=== PATIENT | female | born 1995 | race Caucasian/White ===

== ENCOUNTER 2022-08-20 11:12 | Emergency (ER) | payer BC, SELFPAY ==
--- NOTE | ~2022-08-20 | XR_ITS ---
EXAMINATION: XR FOREARM, RIGHT XR HAND, RIGHT CLINICAL INFORMATION: Crush injury to the right forearm.
--- NOTE | ~2022-08-20 | XR_ITS ---
EXAMINATION: XR FOREARM, RIGHT XR HAND, RIGHT CLINICAL INFORMATION: Crush injury to the right forearm. COMPARISON: None TECHNIQUE: AP and lateral views of the right forearm were obtained. 4 views of the right hand including scaphoid view. FINDINGS: Right forearm: Soft tissue swelling and radiolucencies are noted over the dorsal distal aspect of the right forearm. The underlying bony alignments are intact. The cortices are intact. Right hand: The bony alignments are intact. The cortices are intact. Soft tissue swelling is present overlying the dorsal aspect of the right wrist and the adjacent part of the forearm. XR/XR forearm RT 2V IMPRESSION: 1. Soft tissue swelling overlying the dorsal aspect of the right distal forearm extending over the wrist. 2. The underlying bones are intact.
[2022-08-20 11:15] VITALS: BP 159/118; PULSE 100; RESP 18; TEMP 37.1; O2SAT 98; BMI 30.4
--- NOTE | 2022-08-20 11:47 | ED.EXTPRO ---
HPI - Extremity Problem General Chief complaint: Extremity Injury, Upper Stated complaint: R ARM INJ AT WORK Time Seen by Provider: 08/20/22 11:22 Source: patient Mode of arrival: ambulatory Limitations: no limitations History of Present Illness HPI Narrative: 27-year-old female no significant medical history presents to the emergency department with complaints of pain to right forearm / wrist status post crush injury Just prior to arrival. 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 She tells me she immediately started experiencing pain and area became very swollen.. Tells me she experience some numbness to her fingers initially however has now improved. Denies any other medical complaints at this time. Related Data Home Medications Medication Instructions Recorded Confirmed norgestimate 0.18 mg/0.215 mg/0.25 1 tab PO DAILY 08/25/20 02/04/22 mg-ethinyl estradiol 25 mcg tablet ([id number]) Previous Rx's Medication Instructions Recorded clotrimazole 1 % topical cream 1 appl topical BID 4 weeks #45 02/04/22 grams miconazole nitrate 2 % topical 1 appl topical BID #71 grams 02/04/22 powder (Zeasorb AF) omeprazole 20 mg capsule,delayed 20 mg PO DAILY #90 caps 03/07/22 release ketorolac 10 mg tablet 10 mg PO TID PRN pain 5 days #15 08/20/22 tabs Allergies Allergy/AdvReac Type Severity Reaction Status Date / Time No Known Allergies Allergy Verified 02/04/22 16:32 Review of Systems Review of Systems: Constitutional : No Weight loss, No Fever, No Chills, No Fatigue, No Malaise ENT/Mouth : No sore throat, No Rhinorrhea Eyes: No Eye Pain, No Swelling, No Redness Cardiovascular : No Chest Pain, No SOB, No Dyspnea on Exertion, No Orthopnea, No Edema, No Palpitations Respiratory : No Cough, No Sputum, No Wheezing Gastrointestinal : No Nausea, No Vomiting, No Diarrhea, No Constipation, No abdominal Pain, No Hematochezia, No Melena Genitourinary : No Dysuria, No Urinary Frequency, No Hematuria, Musculoskeletal : + joint pain, No Myalgias, + Joint Swelling Skin : No Skin Lesions, No rash Neuro : No Weakness, No Numbness, No Dizziness, No Headache Psych : No Anxiety/Panic, No Depression All other systems reviewed and are negative Yes all other systems are reviewed and are negative [facility] Past Medical History Attestation statement: The following information was validated with the patient. Source: old records reviewed and nursing notes reviewed Medical History GERD (gastroesophageal reflux disease) Overweight (BMI 25.0-29.9) Surgical History No pertinent past surgical history Family History Family History Father In good health Mother Hypertension Anxiety Sister In good health Maternal Aunt Substance abuse Maternal Uncle Substance abuse Paternal Uncle Substance abuse Maternal Grandmother Renal cancer Social History Social History Housing: Apartment Alcohol intake: current Patient Tobacco Use Status: Never used Tobacco e-Cigarette/Vaping Use: Never Used Second Hand Smoke Exposure: No Advance Directives: No Advance Directives Information Provided: No Current occupational status: employed Cognitive needs: No Hearing needs: No Vision needs: No Physical Exam Vital Signs: Vital Signs: Last Vital Signs Temp 98.8 F 08/20/22 11:15 Pulse 100 08/20/22 11:15 Resp 18 08/20/22 11:15 BP 159/118 H 08/20/22 11:15 Pulse Ox 98 08/20/22 11:15 O2 Del Method 08/20/22 11:15 BMI result Body Mass Index 30.4 Patient hypertensive and tachycardic likely secondary to pain Appearance: Alert.? Oriented X3.? No acute distress.? Head: Normocephalic, atraumatic, no step-offs or deformities Eyes: Pupils equal, round and reactive to light.? ENT: Pharynx normal.? Neck: Normal inspection.? Neck supple.? CVS: Normal heart rate and rhythm.? Pulses normal.? Respiratory: No respiratory distress.? Breath sounds normal.? Abdomen: Soft and nontender.? Skin: Skin warm and dry.? Normal skin color.? Normal skin turgor.? Extremities: 5/5 strength to bilateral upper and lower extremities. 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 Patient's right distal forearm and wrist noted to be swollen on the dorsal aspect. Pain with palpation overlying entire forearm and wrist area , no crepitus. Full range of motion to elbow, wrist, fingers. No point tenderness. Capillary refill less than 2 seconds to all upper extremity digits. 2+ radial pulses equal bilateral. 2+ brachial pulses. Compartments are soft bilaterally. Normal sensation to entire right upper extremity. Neuro: Oriented X 3.? No motor deficit.? No sensory deficit. CN 2-12 intact Course Reevaluation(s) Reevaluation #1: x-ray of forearm, hand and wrist showing soft tissue swelling overlying the dorsal aspect of the right distal forearm extending over the wrist. The underlying bones are intact. patient's neuro checks remained intact, no signs of neurovascular compromise. Compartments still soft. Plan at this time is to discharge patient home with strict return precautions. I did have a long conversation with patient about compartment syndrome and went over worrisome signs and symptoms and when to return. I outlined signs and symptoms pertaining to compartment syndrome and explained to her that this is a potential complication of a crush injury. Patient verbalizes understanding and I answered all questions. At this time I feel comfortable discharge home. Time: 12:15 Medications Administered Discontinued Medications Generic Name Dose Route Start Last Admin Trade Name Freq PRN Reason Stop Dose Admin Ketorolac Tromethamine 30 mg 08/20/22 11:27 08/20/22 11:41 Ketorolac Tromethamine 30 Mg/Ml Vial IM 08/20/22 11:28 30 mg ONCE ONE Administration Medical Decision Making Medical Decision Making [facility] Narrative: 1204 27-year-old female presents with crush injury to right upper extremity just prior to arrival. Reports significant pain. Experience numbness however has resolved. Physical examination significant for 5/5 strength to bilateral upper and lower extremities. 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 Patient's right distal forearm and wrist noted to be swollen on the dorsal aspect. Pain with palpation overlying entire forearm and wrist area , no crepitus. Full range of motion to elbow, wrist, fingers. No point tenderness. Capillary refill less than 2 seconds to all upper extremity digits. 2+ radial pulses equal bilateral. 2+ brachial pulses. Compartments are soft bilaterally. Normal sensation to entire right upper extremity. Will rule out fractures, dislocations. Due to mechanism of injury there is concerns that this injury could progress to compartment syndrome however at this time I do not suspect acute compartment syndrome. Plan at this time is imaging. No need for CTA as there is no neurovascular compromise. Critical Care Time Critical Care Time Critical Care Time: No Discharge Plan Discharge Clinical Impression: Crush injury arm, Pain and swelling of right forearm Patient Disposition: Home, Self-Care Additional Instructions: Take your medications as prescribed. If you were prescribed antibiotics today, it is important that you take your medication to their entirety, do not skip any doses, do not finish them early. Follow-up with your primary care provider this week. Return to the emergency department with new or worsening symptoms. Such as worsening pain, inability to differentiate between hot and cold temperatures, worsening swelling, numbness, tinglin, fevers, chills, chest pain, shortness of breath, nausea, vomiting, dizziness, headache, vision changes, lethargy In case of emergency call 911 Please elevate right upper extremity, ice it, take tordol as prescrbibed. Do not take it with other NSAIDS, ibuprofen or alcohol. Some side effects of tordol include increased bleeding risk, kidney injury. please take the time to read the handout on compartment syndrome. Wear iris wrap as instructed. Signs and symptoms of compartment syndrome include: - severe pain that seems worse than you would expect for the injury or that does not get better with pain medicine. - pain that increases when he rest the area our stretcher bend the area - swelling, tightness, or hardness of the skin in the area that was injured - pale or showing any skin near your injury - weak muscles in the area, or trouble moving your injured arm or leg - numbness, tingling or burning in the area Prescriptions: New ketorolac 10 mg tablet 10 mg PO TID PRN (Reason: pain) 5 Days Qty: 15 0RF Rx Instructions: Tolerated IM in the department No Action omeprazole 20 mg capsule,delayed release(DR/EC) 20 mg PO DAILY Qty: 90 2RF norgestimate-ethinyl estradiol [[id number]] 0.18/0.215/0.25 mg-25 mcg tablet 1 tab PO DAILY Zeasorb AF 2 % powder 1 appl topical BID Qty: 71 0RF clotrimazole 1 % cream 1 appl topical BID 28 Days Qty: 45 0RF Referrals: Po,Ynes Bazzi MD [Primary Care Provider] - 2 days Stand Alone Forms: Work/School Release Interventions: ED Discharge Assessment Last Done: 08/20/22 12:33 Discharge Date/Time: 08/20/22 12:33
== END 2022-08-20 12:33 | disposition home or self-care (01) ==
PROVIDERS: Emergency Provider Student in an Organized Health Care Education/Training Program; PCP Internal Medicine
DX: S59.911A Unspecified injury of right forearm, initial encounter (principal); W23.0XXA Caught, crushed, jammed, or pinched between moving objects, initial encounter; Y93.89 Activity, other specified; Y92.79 Other farm location as the place of occurrence of the external cause; Y99.0 Civilian activity done for income or pay
CPT/HCPCS: 73090; 73110; 73130; 96372; 99283; 99284; J1885

== ENCOUNTER 2023-02-23 07:56 | Outpatient (REF) | payer BC, SELFPAY ==
[2023-02-23 11:10] LABS: MANUAL DIFF FLAG NO
[2023-02-23 11:14] LABS: Basophils Percent Auto 0.6 % (0-2); Eosinophils Absolute Auto 0.1 X10*3/uL (0.0-0.4); Eosinophils Percent Auto 2.2 % (0-4); Hematocrit 42.9 % (37.0-47.0); Hemoglobin 14.4 g/dl (12.0-16.0); Imm Gran Abs Auto 0.02 X10*3/uL (0.00-0.03); Imm Gran Pct Auto 0.3 % (0.0-0.4); Lymphocytes Absolute Auto 2.5 X10*3/uL (1.2-4.9); Lymphocytes Percent Auto 38.4 % (20-40); Mean Corpuscular HGB Conc 33.6 g/dl (31.0-35.0); Mean Corpuscular Hemoglobin 31.2 pg (27.0-33.0); Mean Corpuscular Volume 92.9 fL (80.0-98.0); Mean Platelet Volume 11.3 fL (9.4-12.3); Monocytes Absolute Auto 0.5 X10*3/uL (0.1-1.2); Monocytes Percent Auto 7.4 % (2-11); Neutrophils Absolute Auto 3.3 x10*3/uL (2.0-8.3); Neutrophils Percent Auto 51.1 % (45-73); Platelet Count 260 X10*3/uL (160-400); Red Blood Count 4.62 X10*6/uL (4.20-5.50); Red Cell Distribution Width 12.4 % (11.0-16.0); White Blood Count 6.4 X10*3/uL (4.8-10.8)
[2023-02-23 11:36] LABS: Alanine Aminotransferase 43 U/L (0-31); Albumin Level 4.1 g/dL (3.5-5.0); Alkaline Phosphatase 53 U/L (39-117); Aspartate Amino Transferase 24 U/L (5-31); Bilirubin Total 0.7 mg/dL (0.0-1.0); Blood Urea Nitrogen 15 mg/dL (9-16); Calcium 9.3 mg/dL (8.4-10.2); Carbon Dioxide 25 mmol/L (22-29); Chloride 105 mmol/L (96-108); Estimated Glomerular Filt Rate > 60; Glucose Random 86 mg/dL (60-115); Potassium 4.6 mmol/L (3.3-5.1); Sodium 137 mmol/L (135-145); Total Protein 7.4 g/dL (6.5-8.0)
[2023-02-23 11:49] LABS: Anion Gap 11 (12-20)
[2023-02-23 11:59] LABS: Free T4 (Free Thyroxine) 0.83 ng/dL (0.71-1.85); Thyroid Stimulating Hormone 3.89 uIU/mL (0.32-4.0)
[2023-02-24 03:58] LABS: HBS Num1 0.19 mIU/mL (0-7.99); HBc Num1 0.08 S/CO (0.00-0.79); HBsAGNum1 0.45 S/CO (0.00-0.99); Hepatitis B Core Antibody Nonreactive (Nonreactive); Hepatitis B Surface Antigen Negative (Negative); ~HepC Num1 0.08 S/CO (0.00-0.79); ~Hepatitis B Surface Antibody NONREACTIVE (Nonreactive); ~Hepatitis C Antibody Nonreactive (Nonreactive)
== END 2023-02-23 07:57 | disposition home or self-care (01) ==
LOC: HO.HMGCLDS 07:56
PROVIDERS: PCP Internal Medicine; Visit Provider Internal Medicine
DX: R79.89 Other specified abnormal findings of blood chemistry (principal); R94.6 Abnormal results of thyroid function studies
CPT/HCPCS: 36415; 80053; 84439; 84443; 85025; 86704; 86706; 86803; 87340

== ENCOUNTER 2023-04-27 08:00 | Outpatient (RCR) | payer BC, SELFPAY ==
--- NOTE | 2023-03-23 10:58 | MHC.PT.EP ---
[facility] [place] [facility] [place] [facility] [place] [facility] [address] [phone] F: [phone] F: [phone] F: [phone] F: [phone] Physical Therapy Plan of Care Date of Evaluation: Date of Surgery: Diagnosis: This is a 27 yo female presenting to skilled PT with a script for low back pain. Assessment: This is a 27 yo female presenting to skilled PT with a script for low back pain. Today at the [facility] she states that her back pain has been ongoing for years (mild scoliosis) but has recently gotten worse with work related tasks (works at a horse barn, cleaning stalls, caring for horses and riding). She reports that she has low back stiffness and pain on the lower R aspect and is achy in general (but can range up into her upper back as well). Her goals are to improve strength and relieve muscle stiffness. Denies radiating symptoms. Assessment reveals pain that ranges from 4-6/10. Patient demos decreased thoracic and low lumbar ROM, strength of core and gluts and decreased function with lifting and squatting techniques. Based on functional limitations, impaired QOL and pain tolerance patient is a good candidate for skilled PT 2x/wk for 4wks. Frequency and Duration: The patient will be seen 2x/wk for 4wks Short Term Goals: (in 2 wks) I in HEP Demo proper technique of core stab and nuetral pelvic alignment Demo proper squat techniques without pain [facility] Goals: (in 4wks) Demo at least 1 grade MMT improvement of BLE Demo WFL ROM of lumbar, thoracic spine without pain Improve pain to no more than 2/10 at the worst Improve oswestry by at least 10 points Treatment Plan: Modalities to reduce pain, spasms and effusion. Manual therapy to restore motion and function. Therapeutic exercise to improve strength and flexibility. Neuromuscular re-education for posture and balance. Therapeutic activities to return to functional activities of daily living. Electronically signed by: Maricruz Hernandez PT Please sign and return to therapist. Thank you for your referral.
--- NOTE | 2023-05-16 13:34 | MHC.PT.DC ---
[facility] [place] [facility] [place] [facility] [place] [facility] [address] [phone] F: [phone] F: [phone] F: [phone] F: [phone] Physical Therapy Discharge Report Diagnosis: This is a 27 yo female presenting to skilled PT with a script for low back pain. Date of Surgery: Date of Evaluation: 03/23/23 Date of Discharge: 05/16/23 Treatments to Date: 6 Cancellations to Date: 0 No Shows to Date: 0 Discharge Status: Independent with HEP Patient Elected to Stop Discharge Summary: Continued POC at her last tx session. No pain was reported throughout the session and no specific pain to start the session. Held KT as it unraveled due to pant line. Utilized MH to start the session and ended with ice and stim. We talked about PT POC and plan is to DC next session (however patient cancelled this) and educated on different avenues of pain relief. Due to repeated motions with her job she was having a hard time progressing with pain relief from PT. Educated to follow up with PT as well. Electronically signed by: Maricruz Hernandez, PT Please sign and return to therapist. Thank you for your referral.
== END 2023-05-16 13:33 | disposition home or self-care (01) ==
LOC: HO.PTCHIC 08:00
PROVIDERS: PCP Internal Medicine; Visit Provider Internal Medicine
DX: M54.50 Low back pain, unspecified (principal)
CPT/HCPCS: 97014; 97110; 97140; 97161

== ENCOUNTER 2023-08-30 12:02 | Outpatient (AMB) | payer BC, SELFPAY ==
--- NOTE | 2023-08-30 13:12 | MHC.OFFWIV ---
Intake Vital Signs 08/30/23 13:13 Height 5 ft 1 in Weight 157 lb BMI 29.7 BP 128/76 Blood Pressure Location Rt brachial Position Sitting Pulse 114 H Pulse Source Pulse Oximeter Temp 99.1 F Temp Source Oral Pulse Oximetry (%) 98 Oxygen Delivery Method Room Air Intake Visit Reasons: EP ear throat pain [id number] Intake Note: pt is here for c/o ear pain and throat pain Patient Tobacco Use Status: Never used Tobacco Allergies No Known Allergies Allergy (Verified 08/30/23 13:44) Medication List - Last Reconciled 08/30/23 by Steven Carson MD [id number] 1,000-50 mg (Immune Support) ea PO norgestimate-ethinyl estradiol 0.18/0.215/0.25 mg-35 mcg (28) (Tri-Estarylla) 1 tab PO DAILY omeprazole 20 mg PO DAILY Do you need a note to return to daycare/school/sports/work: Yes HPI EP ear throat pain [id number] HPI Details 28-year-old female presents to the office for a sick visit. Patient is reporting symptoms of cold, postnasal drip and nonproductive cough for the past 2 weeks. No fevers or chills. [facility] Medical History GERD (gastroesophageal reflux disease) Overweight (BMI 25.0-29.9) Surgical History No pertinent past surgical history Family History Father In good health Mother Hypertension Anxiety Sister In good health Maternal Aunt Substance abuse Maternal Uncle Substance abuse Paternal Uncle Substance abuse Maternal Grandmother Renal cancer Social History (Updated 02/14/23 @ 16:30 by Ynes Vincent MD) Housing: Apartment Alcohol intake: current Patient Tobacco Use Status: Never used Tobacco e-Cigarette/Vaping Use: Never Used Second Hand Smoke Exposure: No Current occupational status: employed Cognitive needs: No Hearing needs: No Vision needs: No Physical Exam Vital Signs: Last Vital Signs Temp 99.1 F 08/30/23 13:13 Pulse 114 H 08/30/23 13:13 BP 128/76 08/30/23 13:13 Pulse Ox 98 08/30/23 13:13 Oxygen Delivery Method Room Air 08/30/23 13:13 BMI result Body Mass Index 29.7 Const General: cooperative and healthy appearing Nutritional Appearance: well nourished Orientation/consciousness: patient oriented x3 Limitations: no limitations HEENT Head: Yes normal to inspection Eyes General: appearance normal, both eyes and all related structures Neck Neck: Yes normal visual inspection Chest Chest palpation & inspection: normal palpation of entire chest wall Resp Effort & Inspection: normal respiratory effort Neuro General: patient oriented x3 Results AMB Rapid Strep AMB Rapid Strep Negative Last Edit by Sridhar Galvan CMA on 08/30/23 13:44 Assessment & Plan Assessment & Plan (1) Upper respiratory tract infection: Code(s): J06.9 - Acute upper respiratory infection, unspecified Plan: Viral etiology. No antibiotics needed. If symptoms do not improve to follow-up here. Strep test reviewed with patient. Orders: Orders AMB Rapid Strep Screen Today Z13.9 - Encounter for screening, unspecified Coding Level of Care Code Est Pt Level 3 (99054) Diagnoses Upper respiratory tract infection J06.9
[2023-08-30 13:13] VITALS: BP 128/76; PULSE 114; TEMP 37.3; O2SAT 98; BMI 29.7
== END 2023-08-30 14:00 | disposition home or self-care (01) ==
PROVIDERS: PCP Internal Medicine; Visit Provider Internal Medicine
DX: J06.9 Acute upper respiratory infection, unspecified (principal)
CPT/HCPCS: 87880; 99213